=== PATIENT | female | born 1995 | race Hispanic/Latino ===

== ENCOUNTER 2023-11-29 01:06 | Emergency (ER) | payer MEDICAID ==
[~2023-11-29] VITALS: Ht 172.7 cm; Wt 72.6 kg
[2023-11-29] MEDS: 0.9%NACL 1000ML 1,000 ML IV ONE (03:23)
[2023-11-29 03:33] LABS: BILIRUBIN,URINE NEGATIVE (NEGATIVE); GLUCOSE, URINE (UA) NEGATIVE (NEGATIVE); KETONES,URINE NEGATIVE (NEGATIVE); LEUKOCYTE ESTERASE ,URINE MODERATE Leu/uL (NEGATIVE); NITRATE,URINE POSITIVE (NEGATIVE); OCCULT BLOOD,URINE MODERATE (NEGATIVE); PH,URINE 5.5 (5.0-8.0); PROTEIN,URINE 100 mg/dL (NEGATIVE)
[2023-11-29 03:53] LABS: BASOPHILS # (AUTO) 0.04 K/uL (0.00-0.20); BASOPHILS % (AUTO) 0.5 % (0.0-5.0); EOSINOPHILS # (AUTO) 0.07 K/uL (0.00-0.70); EOSINOPHILS % (AUTO) 0.9 % (0.0-8.0); IMMATURE GRANULOCYTE ABSOLUTE 0.02 K/uL (0-1); LYMPHOCYTES # (AUTO) 2.6 K/uL (1.0-4.8); LYMPHOCYTES % (AUTO) 32.2 % (21.0-51.0); MEAN CORPUSCULAR HEMOGLOBIN 28.7 pg (27.0-33.0); MEAN CORPUSCULAR HGB CONC 33.8 g/dL (32.0-36.0); MEAN CORPUSCULAR VOLUME 84.9 fL (79-99); MONOCYTES # (AUTO) 0.5 K/uL (0.1-1.0); MONOCYTES % (AUTO) 5.9 % (3.0-13.0); NEUTROPHILS # (AUTO) 4.9 K/uL (1.8-7.7); NEUTROPHILS % (AUTO) 60.3 % (40.0-77.0); PLATELET COUNT (AUTO) 267 K/uL (130-400); RED BLOOD CELL COUNT(AUTO) 4.36 MIL/uL (4.00-5.50); RED CELL DISTRIBUTION WIDTH 12.4 % (11.0-15.5); WHITE BLOOD COUNT (AUTO) 8.1 K/uL (4.8-10.8)
[2023-11-29 04:05] LABS: CREATININE 0.9 mg/dL (0.5-1.0); POTASSIUM 3.1 mmol/L (3.5-5.1)
[2023-11-29 04:14] LABS: ADD UA MICROSCOPIC YES; APPEARANCE,URINE TURBID (CLEAR); COLOR,URINE RED (YELLOW)
[2023-11-29 04:15] LABS: BILIRUBIN,TOTAL 0.4 mg/dL (0.2-1.0); TOTAL PROTEIN, SERUM 7.6 g/dL (6.0-8.3)
[2023-11-29 04:21] LABS: BACTERIA,URINE Few /HPF (None Seen); RBC,URINE TNTC /HPF (0-1)
[2023-11-29 04:22] LABS: SQUAMOUS EPITHELIAL CELL,UR Rare /HPF (0-2)
[2023-11-29 05:12] VITALS: BP 113/69; PULSE 67; RESP 18; O2SAT 100
== END 2023-11-29 06:15 | disposition home or self-care (01) ==
LOC: EDH 01:06
DX: O03.9 Complete or unspecified spontaneous abortion without complication (principal); O26.899 Other specified pregnancy related conditions, unspecified trimester; R10.2 Pelvic and perineal pain
CPT/HCPCS: 99284; 96360; 76801; 80053; 84702; 85025; 87088; 81001; 36415; J7030

== ENCOUNTER 2025-05-16 10:56 | Emergency (ER) | payer MEDICAID ==
[~2025-05-16] VITALS: Ht 172.7 cm; Wt 81.6 kg
--- NOTE | 2025-05-16 11:15 | ERN ---
ED Note History of Present Illness Stated Complaint: NECK PAIN Chief Complaint: Neck Pain Time Seen by MD: 10:59 Dictation: PATIENT IS A 29-YEAR-OLD FEMALE HERE WITH COMPLAINTS OF NON TRAUMA LEFT LATERAL POSTERIOR NECK PAIN THAT OCCASIONALLY RADIATES HE UP TO HER TEMPORAL AND THEN BACK DOWN SHE HAS HAD IT FOR TWO DAYS. NO TRAUMA NO FEVER NO CHILLS NO NAUSEA VOMITING NO RASH. SHE STATES SHE IS IS ONLY TAKING TYLENOL. NO MIDLINE SPINE PAIN NO PRIOR SURGERIES. NEUROVASCULAR CMS INTACT TO ALL EXTREMITIES Allergies: Coded Allergies: No Known Allergies (Unverified Allergy, Unknown, 11/29/23) Past Medical History Past Medical History: No Pertinent History Surgical History: None Family History: Negative Social History: Negative, Lives with family LMP: May 02, 2025 : 3 Para: 1 Aborts: 1 RN Note Reviewed/Agreed w/PFSH: Yes Review of System Dictation CONSTITUTIONAL: NEGATIVE EXCEPT FOR HPI HEAD/FACE: NEGATIVE EXCEPT FOR HPI EENT: NEGATIVE EXCEPT FOR HPI RESPIRATORY: NEGATIVE EXCEPT FOR HPI GASTROINTESTINAL/ABDOMINAL: NEGATIVE EXCEPT FOR HPI GENITOURINARY: NEGATIVE EXCEPT FOR HPI MUSCULOSKELETAL: NEGATIVE EXCEPT FOR HPI LEFT LATERAL POSTERIOR CERVICAL TENDERNESS. WITH MUSCLE SPASM NOTED INTEGUMENTARY: NEGATIVE EXCEPT FOR HPI NEUROLOGICAL/PSYCH: NEGATIVE EXCEPT FOR HPI HEMATOLOGIC/LYMPHATIC: NEGATIVE EXCEPT FOR HPI ALL SYSTEMS NEGATIVE, EXCEPT NOTED ABOVE. 13 POINT REVIEW OF SYSTEMS ASSESSED AND ALL NEGATIVE EXCEPT FOR ABOVE. Initial Vital Sign VS Vital Signs Date Time Temp Pulse Resp B/P (MAP) Pulse Ox O2 Delivery O2 Flow Rate FiO2 05/16/25 10:58 97.9 75 20 128/69 99 Room Air 0 05/16/25 11:14 21 Physical Exam Dictation VITAL SIGNS REVIEWED GENERAL APPEARANCE: ALERT, ORIENTED X 3, MILD ACUTE DISTRESS, WELL DEVELOPED, NOURISHED. HEAD AND FACE: NON-TRAUMATIC. EYES: PERRL, PINK CONJUNCTIVAS, EYELID NO TRAUMA, ANTERIOR CHAMBER WITH ARCUS SENILIS. EARS: PINNAS INTACT AND NO SIGNS OF TRAUMA OR ERYTHEMA EAR CANALS CLEAR AND NO DISCHARGE TM NO ERYTHEMA NOSE: NO DISCHARGE, NO BLEEDING. OROPHARYNX: MOUTH NORMAL, TONGUE PINK, PHARYNX CLEAR,NO ERYTHEMA, TONSILS NO EXUDATES, NO ABSCESSES NOTED, MUCOUS MEMBRANE MOIST NECK: SUPPLE, LEFT LATERAL POSTERIOR TENDERNESS, NO THYROMEGALY, NO MASSES, NO JVD, NO BRUITS BREAST:DEFERRED CHEST:NO TENDERNESS, NO CREPITUS, NO PARADOXICAL MOVEMENT, NO RETRACTIONS LUNGS:CLEAR, WELL-VENTILATED, SYMMETRIC, NO RALES, NO WHEEZING, NO RHONCHI, NO STRIDOR, GOOD BREATH SOUNDS BILATERALLY HEART: REGULAR RATE, REGULAR RHYTHM, NO MURMUR, NO GALLOPS VASCULAR: NO PERIPHERAL EDEMA, ABDOMEN: SOFT, POSITIVE BOWEL SOUNDS, NONDISTENDED, NO GUARDING, NONTENDER, NO REBOUND, NO MASSES NO HEPATOMEGALY, NO SPLENOMEGALY, NO URBINA'S SIGN, NO HERNIAS. RECTAL: DEFERRED GENITAL: DEFERRED NEUROLOGICAL: NORMAL SPEECH, MOTOR FUNCTION INTACT, SENSORY FUNCTION INTACT MUSCULOSKELETAL: LEFT LATERAL POSTERIOR NECK TENDERNESS WITH SPASM TO THE PARASPINOUS., FULL RANGE OF MOTION, BACK NONTENDER, FULL RANGE OF MOTION, NO MIDLINE SPINE PAIN OR STEP-OFFS. DECREASED RANGE OF MOTION SECONDARY TO PAIN. EXTREMITIES: NONTENDER, FULL RANGE OF MOTION SKIN: COLOR PINK, DRY, NO TURGOR, NO RASH, NO LACERATIONS, NO ABRASIONS, NO CONTUSIONS. LYMPHATIC: DEFERRED Results (Laboratory/Radiology) Laboratory/Radiology acute fracture or aggressive appearing osseous lesion. DISCS/DEGENERATIVE CHANGES: The disc spaces are preserved. Posterior vertebral body alignment is within normal limits. SOFT TISSUES: No prevertebral soft tissue swelling. The visualized lung apices are clear. IMPRESSION: No acute cervical spine abnormality. /[place] [facility] Reviewed?: Yes ED Course ED Course Orders Procedure Category Date Status Time Acetaminophen 500mg PHA 05/16/25 Complete Tab (Tylenol 500mg T 11:30 Cerv Spine 2-3vws RAD 05/16/25 Resulted 11:14 Current Medications Medications (Trade) Dose Ordered Sig/Ana Route PRN Reason Start Time Stop Time Status Last Admin Dose Admin Acetaminophen (TYLenol 500MG TAB) 1,000 mg ONCE ONCE PO 05/16/25 11:30 05/16/25 11:31 DC 05/16/25 11:19 Vital Signs Date Time Temp Pulse Resp B/P (MAP) Pulse Ox O2 Delivery O2 Flow Rate FiO2 05/16/25 11:14 97.9 75 20 128/69 99 Room Air* 0 21 05/16/25 10:58 97.9 75 20 128/69 99 Room Air 0 1120/SPOKE WITH GRICEL THE PHARMACIST AND DISCUSSED PATIENT'S PAIN OPTIONS SINCE SHE IS . IT WAS DECIDED THAT THE MOST SAFE CHOICE FOR HER WAS TYLENOL SHE AGREED WITH THIS BECAUSE SHE DID NOT WANT TO RISK ANYTHING TO HER NURSING BABY NOR DID SHE WANTED TO PUMP AND DISCARD.1150/ 1150/PATIENT DECIDE SHE WOULD LIKE ADDITIONAL ANALGESIA WITH A A MUSCLE RELAXER AND THEN SHE WILL PUMP AND DISCARD AND TALKED TO HER DOCTOR I WE WILL PRESCRIBED TYLENOL 310 WITH SOME Medical Decision Making MDM MEDICAL DECISION-MAKING BASED ON X-RAY FOR NON TRAUMA CERVICAL NECK PAIN. ADDITIONALLY SPOKE WITH GRICEL [facility]AA[facility] REGARDING THE EFFICACY AND SAFETY OF DIFFERENT MEDICATIONS FOR PAIN TYLENOL RECOMMENDED FOR PAIN ONLY CERVICAL X-RAY NEGATIVE NEUROVASCULAR CMS INTACT TO ALL EXTREMITIES DX & DISP Disposition: Discharge Departure Impression: Primary Impression: Torticollis, acute Additional Impression: Mother currently breast-feeding Condition: Stable Scripts Cyclobenzaprine HCl (Cyclobenzaprine HCl) 10 Mg Tablet 1 TAB PO TID for muscle spasms for 10 Days, #30 TAB 0 Refills Prov: CALVIN STONE NP 05/16/25 Acetaminophen with Codeine (Acetaminophen-Cod #3 Tablet) 300 Mg-30 Mg Tablet 1 TAB PO Q4H PRN for MODERATE TO SEVERE PAIN, #10 TAB 0 Refills Prov: CALVIN STONE NP 05/16/25 Additional Instructions: FOLLOW-UP WITH PRIMARY CARE PROVIDER IN 1 TO 2 DAYS. TAKE MEDICATIONS DIRECTED HERE IN THE EMERGENCY ROOM. OKAY TO CONTINUE HOME MEDICATIONS UNLESS OTHERWISE DISCUSSED DURING YOUR VISIT IN THE EMERGENCY ROOM TODAY. RETURN TO YOUR NEAREST EMERGENCY ROOM IF SYMPTOMS WORSEN OR IF THERE IS NO IMPROVEMENT. CALL 911 IF YOU NEED IMMEDIATE ASSISTANCE. TAKE TYLENOL [id number] NEEDED AND IF NO CONTRAINDICATIONS ARE PRESENT. INCREASE ORAL HYDRATION. A WOUND CULTURE OR URINE CULTURE WAS ORDERED HERE IN THE EMERGENCY ROOM DEPARTMENT PLEASE FOLLOW-UP WITH PRIMARY CARE PROVIDER AND ADVISE THEM TO GET REPEAT PORTS FROM OUR FACILITY. IF YOU HAD ANY ABBY WRAP/SPLINTS THAT WERE APPLIED HERE, PLEASE DO NOT REMOVE THEM UNTIL YOU SEE YOUR PRIMARY CARE OR SPECIALTY. WARM COMPRESSES TO NECK THREE TO 4 TIMES A DAY. SUGGEST TYLENOL [id number] NEEDED FOR PAIN EVERY 6 HOURS. SEE YOUR PRIMARY CARE DOCTOR FOR FOLLOW UP AND MANAGE Referrals: SELF,REFERRAL (PCP) I have reviewed the case, and I agree with, Diagnosis and Plan CALVIN STONE NP May 16, 2025 11:15
--- NOTE | 2025-05-16 11:21 | NUR ---
PT IS BEING TAKEN TO XRAY
--- NOTE | 2025-05-16 11:40 | HMCIMG ---
EXAM: CR Cervical spine, 3 View. CLINICAL HISTORY: NON TRAUMA LEFT LATERAL NECK PAIN TWO DAYS. COMPARISON: None provided. FINDINGS: BONES: No acute fracture or aggressive appearing osseous lesion. DISCS/DEGENERATIVE CHANGES: The disc spaces are preserved. Posterior vertebral body alignment is within normal limits. SOFT TISSUES: No prevertebral soft tissue swelling. The visualized lung apices are clear. IMPRESSION: No acute cervical spine abnormality. /[place]
[2025-05-16] MEDS ORDERED: ACET-2079 PO (11:56)
[2025-05-16] MEDS ORDERED: CYCL-309 PO (11:56)
[2025-05-16 12:09] VITALS: BP 125/75; PULSE 77; RESP 12; TEMP 98.2; O2SAT 96
== END 2025-05-16 12:10 | disposition home or self-care (01) ==
LOC: EDH 10:56
DX: M43.6 Torticollis (principal)
CPT/HCPCS: 72040; 99283